=== PATIENT | male | born 1935 | race Caucasian/White ===

== ENCOUNTER 2016-03-16 19:08 | Emergency (ER) | payer OTHER, MEDICARE ==
[~2016-03-16] VITALS: Ht 170.2 cm; Wt 118.4 kg
[~2016-03-16 19:08] MED LIST: AMLO-110 PO; ASPI325T45 PO; ATOR-54 PO; CARV6.252 PO; FLUO20CA20 PO; FURO40TA3 PO; INSU1INJ SC; LISI-725 PO; NAPR-1169 PO; PLV75 PO
[2016-03-16 19:17] VITALS: TEMP 36.5; Ht 170.2 cm; Wt 118.4 kg
[2016-03-16] MEDS ORDERED: SODIUM CHLORIDE 0.9% 1000ML 500 ML IV STA (19:31)
[2016-03-16 20:02] LABS: BASO % 0.4 %; BASO ABS # 0.03 K/uL (0-0.2); COMPLETE YES; EOS % 1.7 %; IG% 0.3 %; LYMPH % 17.4 %; MEAN CELL VOLUME 87.2 fL (80-100); MEAN CORPUSCULAR HEMOGLOBIN 28.8 pg (25-34); MEAN CORPUSCULAR HGB CONC 33.1 g/dl (32-36); MEAN PLATELET VOLUME 9.1 fL (7.4-10.4); MONO % 9.6 %; NEUT % 70.6 %; PLATELET COUNT 232 K/uL (130-400); RED BLOOD COUNT 4.13 M/uL (4.7-6.1); WHITE BLOOD COUNT 7.48 K/uL (4.8-10.8)
[2016-03-16 20:14] LABS: INR 1.2 (0.9-1.1); PROTHROMBIN TIME (PATIENT) 12.4 SECONDS (9.0-12.0)
[2016-03-16] MEDS ORDERED: CLOP1TAB5 PO (20:15)
[2016-03-16] MEDS ORDERED: PRLSR20 PO (20:15)
--- NOTE | 2016-03-16 20:23 | DIAGNOSTIC IMAGING REPORT ---
HEAD CT NONCONTRAST CT DOSE: 537.48 mGy.cm HISTORY: Mental status change EVALUATE ALTERED MENTAL STATUS/WEAKNESS TECHNIQUE: Multiaxial CT images of the head were performed without the use of intravenous contrast. Comparison: 07/09/2013 Findings: The paranasal sinuses and mastoid air cells are clear. Findings of chronic small vessel change unaltered from the prior study. Ventricular system is midline. Mild scattered areas of age-related several malacia. Impression: Chronic and age-related change. No acute process. No change from the prior exam. Electronically signed by: Yoshi Clark M.D. 03/16/2016 8:22 PM Dictated Date/Time: 03/16/2016 8:21 PM
[2016-03-16 20:24] LABS: ALT/SGPT 22 U/L (12-78); BLOOD UREA NITROGEN 47 mg/dl (7-18); BUN/CREATININE RATIO 25.8 (10-20); CALCIUM 8.6 mg/dl (8.5-10.1); CARBON DIOXIDE 25 mmol/L (21-32); CHLORIDE 104 mmol/L (98-107); GLUCOSE 71 mg/dl (70-99); POTASSIUM 4.5 mmol/L (3.5-5.1); SODIUM 139 mmol/L (136-145)
[2016-03-16 20:34] LABS: ALB/GLOB RATIO 0.9 (0.9-2); ALKALINE PHOSPHATASE 109 U/L (45-117); AST/SGOT 23 U/L (15-37); THYROID STIMULATING HORMONE 0.733 uIu/ml (0.300-4.500)
--- NOTE | 2016-03-16 20:47 | DIAGNOSTIC IMAGING REPORT ---
CHEST 2 VIEWS ROUTINE CLINICAL HISTORY: EVALUATE ALTERED MENTAL STATUS/WEAKNESS dyspnea COMPARISON STUDY: 07/09/2013 FINDINGS: The bones soft tissues and hemidiaphragms are normal. The cardiomediastinal silhouette is normal. The lungs are clear. The pulmonary vasculature is normal. IMPRESSION: Negative chest. Electronically signed by: Yoshi Clark M.D. 03/16/2016 8:46 PM Dictated Date/Time: 03/16/2016 8:46 PM
[2016-03-16 21:39] LABS: URINE APPEARANCE CLEAR (CLEAR); URINE BILIRUBIN NEG (NEG); URINE COLOR YELLOW; URINE NITRITE NEG (NEG); URINE SPECIFIC GRAVITY 1.011 (1.000-1.030); UROBILINOGEN NEG (NEG)
[2016-03-16 21:40] LABS: MANUAL MICROSCOPIC REQUIRED? NO; REVIEW REQ? NO
[2016-03-16 22:41] VITALS: BP 97/71; PULSE 64; O2SAT 98
--- NOTE | 2016-03-17 02:13 | EMERGENCY ROOM VISIT NOTE ---
History Report prepared by Valeriy: Inocencia Kunz Under the Supervision of: Dr. Chase Prather M.D. First contact with patient: 19:26 Chief Complaint: HYPOGLYCEMIA Stated Complaint: ALTERED MENTAL STATUS, HYPOGLYCEMIA Nursing Triage Summary: Pt arrives by ALS from home. called EMS for hypoglycemia. Pt's BSG at home 47, given OJ reassessed at 57. Per EMS BSG 77. Pt denies any pain. Reports recent falls rib tenderness, bruising to right flank, bilateral legs. Hx of Dementia, HTN, Diabetes. Per . "I think he has a UTI. He's been going all day, but he can't get much out". History of Present Illness The patient is a 80 year old male who presents to the Emergency Room with complaints of an episode of hypoglycemia occurring just prior to arrival. Per the patient and his , the patient appeared to be confused. His checked his blood sugar and it was 47. The patient then drank some orange juice and his blood sugar level summer to 57. EMS was called and recorded a blood sugar level of 77. The patient did fall out of bed twice last week and notes occasional rib pain with movement. He has been experiencing less frequent urination. Patient denies cough, congestion, shortness of breath, or UTI history. The patient has dementia. 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 A total of 10 systems reviewed and were otherwise negative. Past Medical & Surgical Medical Problems: (1) Dementia (2) Diabetes (3) Hyperlipemia (4) Hypertension Family History Diabetes mellitus Hypertension Social History Smoking Status: Never Smoker Marital Status: Housing Status: lives with family Occupation Status: retired Current/Historical Medications Scheduled Amlodipine (Norvasc), 5 MG PO QAM Atorvastatin (Lipitor), 20 MG PO QAM Carvedilol (Coreg), 6.25 MG PO BID Clopidogrel Bisulfate (Plavix), 75 MG PO DAILY Fluoxetine Hcl (Pmdd) (Fluoxetine), 20 MG PO QAM Furosemide (Lasix), 40 MG PO QAM Insulin Isophan/Regular (Humulin 70/30), 70 UNITS SC QAM Insulin Isophan/Regular (Humulin 70/30), 35 UNITS SC QPM Lisinopril (Zestril), 20 MG PO QAM Naproxen (Naprosyn), 500 MG PO BID Omeprazole (Prilosec), 20 MG PO BID Allergies Coded Allergies: No Known Allergies (Verified , 03/14/15) Physical Exam Vital Signs Date Time Temp Pulse Resp B/P Pulse Ox O2 Delivery O2 Flow Rate FiO2 03/16/16 22:41 64 16 97/71 98 03/16/16 21:26 59 20 126/73 98 Room Air 03/16/16 21:15 58 03/16/16 20:52 58 18 139/68 98 Room Air 60 127/58 03/16/16 20:06 59 20 124/67 97 Room Air 03/16/16 19:17 36.5 56 18 120/66 98 Room Air Physical Exam GENERAL: Patient is in no acute distress. HEENT: No acute trauma, normocephalic atraumatic, mucous membranes moist, no nasal congestion, no scleral icterus. NECK: No stridor, no adenopathy, no meningismus, trachea is midline. LUNGS: Clear to auscultation bilaterally, no wheeze, no rhonchi, breath sounds equal. HEART: Without murmurs gallops or rubs, regular rate and rhythm. ABDOMEN: Soft, nontender, bowel sounds positive, no hernias, no peritonitis. EXTREMITIES: Old contusion to left proximal bean without signs of cellulitis, full range of motion to all lower extremities without pain or difficulty, mild edema bilaterally. NEUROLOGIC: Mild dementia noted, awake, able to answer simple questions, no acute motor or sensory deficits, no focal weakness. SKIN: No rash, no jaundice, no diaphoresis. Medical Decision & Procedures ER Provider Diagnostic Interpretation: X ray results and stated below per my interpretation and radiologist interpretation. Other radiology results and stated below per my review and radiologist interpretation: HEAD CT NONCONTRAST CT DOSE: 537.48 mGy.cm HISTORY: Mental status change EVALUATE ALTERED MENTAL STATUS/WEAKNESS TECHNIQUE: Multiaxial CT images of the head were performed without the use of intravenous contrast. Comparison: 07/09/2013 Findings: The paranasal sinuses and mastoid air cells are clear. Findings of chronic small vessel change unaltered from the prior study. Ventricular system is midline. Mild scattered areas of age-related several malacia. Impression: Chronic and age-related change. No acute process. No change from the prior exam. Electronically signed by: Yoshi Clark M.D. 03/16/2016 8:22 PM Dictated Date/Time: 03/16/2016 8:21 PM CHEST 2 VIEWS ROUTINE CLINICAL HISTORY: EVALUATE ALTERED MENTAL STATUS/WEAKNESS dyspnea COMPARISON STUDY: 07/09/2013 FINDINGS: The bones soft tissues and hemidiaphragms are normal. The cardiomediastinal silhouette is normal. The lungs are clear. The pulmonary vasculature is normal. IMPRESSION: Negative chest. Electronically signed by: Yoshi Clark M.D. 03/16/2016 8:46 PM Dictated Date/Time: 03/16/2016 8:46 PM Cath urine drain 600 cc. Laboratory Results 03/16/16 19:50 Red Blood Count 4.13, Mean Corpuscular Volume 87.2, Mean Corpuscular Hemoglobin 28.8, Mean Corpuscular Hemoglobin Concent 33.1, Mean Platelet Volume 9.1, Neutrophils (%) (Auto) 70.6, Lymphocytes (%) (Auto) 17.4, Monocytes (%) (Auto) 9.6, Eosinophils (%) (Auto) 1.7, Basophils (%) (Auto) 0.4, Neutrophils # (Auto) 5.28, Lymphocytes # (Auto) 1.30, Monocytes # (Auto) 0.72, Eosinophils # (Auto) 0.13, Basophils # (Auto) 0.03 03/16/16 19:50 Test 03/16/16 19:50 03/16/16 21:20 03/16/16 22:09 White Blood Count 7.48 K/uL (4.8-10.8) Red Blood Count 4.13 M/uL (4.7-6.1) Hemoglobin 11.9 g/dL (14.0-18.0) Hematocrit 36.0 % (42-52) Mean Corpuscular Volume 87.2 fL (80-100) Mean Corpuscular Hemoglobin 28.8 pg (25-34) Mean Corpuscular Hemoglobin Concent 33.1 g/dl (32-36) Platelet Count 232 K/uL (130-400) Mean Platelet Volume 9.1 fL (7.4-10.4) Neutrophils (%) (Auto) 70.6 % Lymphocytes (%) (Auto) 17.4 % Monocytes (%) (Auto) 9.6 % Eosinophils (%) (Auto) 1.7 % Basophils (%) (Auto) 0.4 % Neutrophils # (Auto) 5.28 K/uL (1.4-6.5) Lymphocytes # (Auto) 1.30 K/uL (1.2-3.4) Monocytes # (Auto) 0.72 K/uL (0.11-0.59) Eosinophils # (Auto) 0.13 K/uL (0-0.5) Basophils # (Auto) 0.03 K/uL (0-0.2) RDW Standard Deviation 46.3 fL (36.4-46.3) RDW Coefficient of Variation 14.5 % (11.5-14.5) Immature Granulocyte % (Auto) 0.3 % Immature Granulocyte # (Auto) 0.02 K/uL (0.00-0.02) Prothrombin Time 12.4 SECONDS (9.0-12.0) Prothromb Time International Ratio 1.2 (0.9-1.1) Activated Partial Thromboplast Time 26.0 SECONDS (21.0-31.0) Partial Thromboplastin Ratio 1.0 Anion Gap 10.0 mmol/L (3-11) Est Creatinine Clear Calc Drug Dose 41.6 ml/min Estimated GFR () 40.9 Estimated GFR (Non- 35.3 BUN/Creatinine Ratio 25.8 (10-20) Calcium Level 8.6 mg/dl (8.5-10.1) Total Bilirubin 0.5 mg/dl (0.2-1) Aspartate Amino Transf (AST/SGOT) 23 U/L (15-37) Alanine Aminotransferase (ALT/SGPT) 22 U/L (12-78) Alkaline Phosphatase 109 U/L (45-117) Total Creatine Kinase 400 U/L (39-308) Troponin I < 0.015 ng/ml (0-0.045) Total Protein 7.1 gm/dl (6.4-8.2) Albumin 3.4 gm/dl (3.4-5.0) Globulin 3.7 gm/dl (2.5-4.0) Albumin/Globulin Ratio 0.9 (0.9-2) Thyroid Stimulating Hormone (TSH) 0.733 uIu/ml (0.300-4.500) Urine Color YELLOW Urine Appearance CLEAR (CLEAR) Urine pH 5.0 (4.5-7.5) Urine Specific [place] 1.011 (1.000-1.030) Urine Protein NEG (NEG) Urine Glucose (UA) NEG (NEG) Urine Ketones NEG (NEG) Urine Occult Blood NEG (NEG) Urine Nitrite NEG (NEG) Urine Bilirubin NEG (NEG) Urine Urobilinogen NEG (NEG) Urine Leukocyte Esterase NEG (NEG) Bedside Glucose 103 mg/dl (70-99) Laboratory results reviewed by me. Medications Administered Medications (Trade) Dose Ordered Sig/Sue Route Start Time Stop Time Status Last Admin Dose Admin Sodium Chloride (Nss 1000ml) 500 ml @ 999 mls/hr Q31M STAT IV 03/16/16 19:31 03/16/16 20:01 DC 03/16/16 19:31 999 MLS/HR ECG Indication: other (hypoglycemia) Rate (beats per minute): 57 Rhythm: sinus bradycardia Findings: no acute ischemic change, no ectopy, other (old septal infarct ) ED Course 1927: The patient was evaluated in room C2. A complete history and physical exam was performed. 1930: Sodium Chloride 500 ml @ 999 mls/hr IV. 2152: I reevaluated the patient. 2158: Reevaluated the patient. Discussed results and discharge instructions: he verbalized understanding and agreement. The patient is ready for discharge. Medical Decision The patient is a 80 year old male who presents to the ED with complaints of hypoglycemia. Differential diagnoses considered include dehydration, hypoglycemia, infection, UTI, intracranial bleeding, anemia, electrolyte imbalance. There is no leukocytosis or concerning anemia. No significant electrolyte abnormality-creatinine is slightly elevated but this is baseline looking back at previous testing. There is no hepatitis. The patient appeared to be in a euthyroid state. Brain CT shows no acute bleed or mass effect. Chest x-ray does not show pneumonia or CHF. Urinalysis shows no infection. The patient was retaining urine though, about 600 mL of urine drained via catheter. On my exam, there were no focal neurologic deficits. The patient had a repeat blood sugar done here, this value is still adequate. EKG shows a sinus bradycardia, no ischemia. Cardiac enzyme testing times one is not suggestive of acute cardiac injury. The patient received IV saline, he is doing well and is asking for discharge. He did eat a meal here without difficulty. His family is at bedside. I spoke to them at length. The patient was felt stable for discharge with outpatient doctor follow-up. His hypoglycemic event has resolved. In regard to the urinary retention. The patient does not want a catheter. I do not think he needs a Wilson at this point as he is able to urinate, just small amounts at a time. Catheter placement would increase his risk for infection. If he cannot urinate at home, he will return to the ER. He will talk with his doctor about his urinary issues. Impression Primary Impression: Hypoglycemia Additional Impression: Urinary retention Scribe Attestation The scribe's documentation has been prepared under my direction and personally reviewed by me in its entirety. I confirm that the note above accurately reflects all work, treatment, procedures, and medical decision making performed by me. Departure Information Dispostion Home / Self-Care Referrals Benjamin Schulte M.D. (PCP) Forms HOME CARE DOCUMENTATION FORM, IMPORTANT VISIT INFORMATION, WORK / SCHOOL INSTRUCTIONS Patient Instructions My [facility] [employer] Additional Instructions keep close watch on your sugars talk with your doctor tomorrow about the urinary retention and the heart rate return for worsening symptoms or if you cannot urinate lab testing today was all ok no urine infection noted today Problem Qualifiers
[2016-04-15] MEDS ORDERED: NTRSLP4 SL (06:30)
[2016-04-15] MEDS ORDERED: ARC5 PO (06:30)
[2016-04-15] MEDS ORDERED: TYL325X PO (06:30)
[2016-04-15] MEDS ORDERED: NVLGIPEN SC (06:30)
[2016-05-17] MEDS ORDERED: DUTA0.5C PO (13:46)
[2016-05-17] MEDS ORDERED: NAPR-1169 PO (13:46)
[2016-05-17] MEDS ORDERED: DONE10TA12 PO (13:46)
[2016-05-17] MEDS ORDERED: GLC/500 PO (13:46)
== END 2016-03-16 22:42 | disposition home or self-care (01) ==
LOC: EDBD 19:08 → C.EDC 19:09
DX: E11.649 Type 2 diabetes mellitus with hypoglycemia without coma (principal); R33.9 Retention of urine, unspecified; F03.90 Unspecified dementia, unspecified severity, without behavioral disturbance, psychotic disturbance, mood disturbance, and anxiety; E78.5 Hyperlipidemia, unspecified; I10 Essential (primary) hypertension; Z83.3 Family history of diabetes mellitus; Z82.49 Family history of ischemic heart disease and other diseases of the circulatory system

== ENCOUNTER 2016-03-22 12:27 | Emergency (ER) | payer OTHER, MEDICARE ==
[~2016-03-22] VITALS: Ht 171.5 cm; Wt 118.8 kg
[~2016-03-22 12:27] MED LIST changes: -ASPI325T45 PO; +CLOP1TAB5 PO; -PLV75 PO; +PRLSR20 PO
[2016-03-22 12:34] VITALS: TEMP 36.6; Ht 171.5 cm; Wt 118.8 kg
--- NOTE | 2016-03-22 13:54 | EMERGENCY ROOM VISIT NOTE ---
History Report prepared by Valeriy: Radha Sellers Under the Supervision of: Dr. Leoncio Navas M.D. First contact with patient: 13:42 Chief Complaint: UNABLE TO VOID Stated Complaint: UNABLE TO VOID Nursing Triage Summary: pt to room a11a via ambulance from home. as per report, pt unable to to void as per . pt here 6 days ago for same issues. pt unable to tell us last time he voided. pt reports 'i dont have any pain i just have pressure here' pt points to lower abdominal/bladder. pt with hx of dementia. no other complaints at this time History of Present Illness The patient is a 80 year old male who presents to the Emergency Room via EMS with complaints of persistent difficulty urinating starting about a week ago. He reports a decreased urinary output and increased frequency of urination. He was evaluated in the Emergency Room 6 days ago. He was discharged home. Since discharge, the most amount of urine he has discharged is 150 cc and the least amount is 50 cc. He was placed on Flomax by his PCP without relief. He denies any history of enlarged prostate. The patient denies fevers, chills, or any other complaints. He denies any recent cold medication. The patient currently denies any pain. He has a history of dementia. Source of History: patient Onset: about a week ago Position: other (global) Symptom Intensity: No pain Quality: other (difficulty urinating) Timing: other (persistent) Modifying Factors (Relieving): other (Flomax without relief) Associated Symptoms: No chills, No fevers Review of Systems All systems have been listed, reviewed, and are negative other than those previously mentioned. Please see Additional Medical History Sheet. Past Medical & Surgical Medical Problems: (1) Dementia (2) Diabetes (3) Hyperlipemia (4) Hypertension Family History Diabetes mellitus Hypertension Social History Smoking Status: Heavy Tobacco Smoker Marital Status: Housing Status: lives with family Occupation Status: retired Current/Historical Medications Scheduled Amlodipine (Norvasc), 5 MG PO QAM Atorvastatin (Lipitor), 20 MG PO QAM Carvedilol (Coreg), 6.25 MG PO BID Clopidogrel Bisulfate (Plavix), 75 MG PO DAILY Fluoxetine Hcl (Pmdd) (Fluoxetine), 20 MG PO QAM Furosemide (Lasix), 40 MG PO QAM Insulin Isophan/Regular (Humulin 70/30), 70 UNITS SC QAM Insulin Isophan/Regular (Humulin 70/30), 35 UNITS SC QPM Lisinopril (Zestril), 20 MG PO QAM Naproxen (Naprosyn), 500 MG PO BID Allergies Coded Allergies: No Known Allergies (Verified , 03/14/15) Physical Exam Vital Signs Date Time Temp Pulse Resp B/P Pulse Ox O2 Delivery O2 Flow Rate FiO2 03/22/16 16:55 67 20 122/65 98 Room Air 03/22/16 15:04 67 18 127/73 99 Room Air 03/22/16 14:43 64 16 98 Room Air 03/22/16 12:34 36.6 69 18 89/65 98 Room Air Physical Exam GENERAL: Patient awake, alert. Disoriented. Patient follows commands. Patient does not appear toxic. Patient is adequately hydrated and well-nourished. SKIN: No erythema, pallor, cyanosis or rash HEENT: Normal head, pupils equal, reactive to light and accommodation. Ears normal. Oral cavity and posterior pharynx appear normal. Neck: Without adenopathy, no neck vein distention. LUNGS: Clear to auscultation. No wheezes, no rales, no rhonchi. HEART: No murmurs. No gallops. No rubs ABDOMEN: Obese, soft, nontender. No masses, no rebound, no hepatomegaly or splenomegaly. RECTAL: Large, swollen prostate. Bruise over right iliac crest. EXTREMITIES: Occasional bruises. No pedal or pretibial edema. No calf or thigh tenderness. NEUROLOGIC: Cranial nerves II-XII within normal limits. No gross motor sensory function deficits. Medical Decision & Procedures Laboratory Results 03/22/16 15:00 Red Blood Count 4.08, Mean Corpuscular Volume 88.2, Mean Corpuscular Hemoglobin 29.2, Mean Corpuscular Hemoglobin Concent 33.1, Mean Platelet Volume 8.6, Neutrophils (%) (Auto) 67.3, Lymphocytes (%) (Auto) 19.7, Monocytes (%) (Auto) 11.2, Eosinophils (%) (Auto) 1.4, Basophils (%) (Auto) 0.2, Neutrophils # (Auto ) 5.64, Lymphocytes # (Auto) 1.65, Monocytes # (Auto) 0.94, Eosinophils # (Auto ) 0.12, Basophils # (Auto) 0.02 03/22/16 15:00 Test 03/22/16 14:15 03/22/16 15:00 Urine Color YELLOW Urine Appearance CLEAR (CLEAR) Urine pH 5.0 (4.5-7.5) Urine Specific [place] 1.014 (1.000-1.030) Urine Protein NEG (NEG) Urine Glucose (UA) NEG (NEG) Urine Ketones NEG (NEG) Urine Occult Blood NEG (NEG) Urine Nitrite NEG (NEG) Urine Bilirubin NEG (NEG) Urine Urobilinogen NEG (NEG) Urine Leukocyte Esterase NEG (NEG) White Blood Count 8.39 K/uL (4.8-10.8) Red Blood Count 4.08 M/uL (4.7-6.1) Hemoglobin 11.9 g/dL (14.0-18.0) Hematocrit 36.0 % (42-52) Mean Corpuscular Volume 88.2 fL (80-100) Mean Corpuscular Hemoglobin 29.2 pg (25-34) Mean Corpuscular Hemoglobin Concent 33.1 g/dl (32-36) Platelet Count 230 K/uL (130-400) Mean Platelet Volume 8.6 fL (7.4-10.4) Neutrophils (%) (Auto) 67.3 % Lymphocytes (%) (Auto) 19.7 % Monocytes (%) (Auto) 11.2 % Eosinophils (%) (Auto) 1.4 % Basophils (%) (Auto) 0.2 % Neutrophils # (Auto) 5.64 K/uL (1.4-6.5) Lymphocytes # (Auto) 1.65 K/uL (1.2-3.4) Monocytes # (Auto) 0.94 K/uL (0.11-0.59) Eosinophils # (Auto) 0.12 K/uL (0-0.5) Basophils # (Auto) 0.02 K/uL (0-0.2) RDW Standard Deviation 47.1 fL (36.4-46.3) RDW Coefficient of Variation 14.6 % (11.5-14.5) Immature Granulocyte % (Auto) 0.2 % Immature Granulocyte # (Auto) 0.02 K/uL (0.00-0.02) Anion Gap 7.0 mmol/L (3-11) Est Creatinine Clear Calc Drug Dose 39.8 ml/min Estimated GFR () 38.3 Estimated GFR (Non- 33.0 BUN/Creatinine Ratio 24.0 (10-20) Calcium Level 8.7 mg/dl (8.5-10.1) Laboratory results as stated above per my review. ED Course 1342: Past medical records reviewed. The patient was evaluated in room A11A. A complete history and physical examination was performed. 1607: Upon reevaluation, the patient appeared to have improvement of his symptoms. I discussed today's findings with the patient and his family. They verbalized agreement of the treatment plan. The patient was discharged home. Medical Decision Differential diagnosis includes but is not limited to urinary retention, prostatic hypertrophy, prostatitis, orthostasis. The patient has an enlarged prostate he was here less than one week ago with urinary retention. He is on no new medications other than Flomax which is not helped much. He denies dysuria. Although he does have urgency and frequency. A Wilson was inserted and left in place. BUN and creatinine are slightly elevated. He does not appear to have a urinary tract infection. The patient will continue Flomax. He will need follow-up with urology. Impression Primary Impression: Urinary retention Additional Impression: Prostatic hypertrophy Scribe Attestation The scribe's documentation has been prepared under my direction and personally reviewed by me in its entirety. I confirm that the note above accurately reflects all work, treatment, procedures, and medical decision making performed by me. Departure Information Dispostion Home / Self-Care Referrals Benjamin Schulte M.D. (PCP) Forms HOME CARE DOCUMENTATION FORM, IMPORTANT VISIT INFORMATION, WORK / SCHOOL INSTRUCTIONS Patient Instructions ED Prostate Enlarged, My [facility] Additional Instructions Leave the catheter in place until removed by urology. Call tomorrow morning for an appointment. Continue all of your current medications as prescribed. Problem Qualifiers
[2016-03-22 14:36] LABS: URINE APPEARANCE CLEAR (CLEAR); URINE BILIRUBIN NEG (NEG); URINE COLOR YELLOW; URINE NITRITE NEG (NEG); URINE SPECIFIC GRAVITY 1.014 (1.000-1.030); UROBILINOGEN NEG (NEG)
[2016-03-22 14:56] LABS: MANUAL MICROSCOPIC REQUIRED? NO; REVIEW REQ? NO
[2016-03-22 15:14] LABS: BASO % 0.2 %; BASO ABS # 0.02 K/uL (0-0.2); COMPLETE YES; EOS % 1.4 %; IG% 0.2 %; LYMPH % 19.7 %; LYMPH ABS # 1.65 K/uL (1.2-3.4); MEAN CELL VOLUME 88.2 fL (80-100); MEAN CORPUSCULAR HEMOGLOBIN 29.2 pg (25-34); MEAN CORPUSCULAR HGB CONC 33.1 g/dl (32-36); MEAN PLATELET VOLUME 8.6 fL (7.4-10.4); MONO % 11.2 %; NEUT % 67.3 %; PLATELET COUNT 230 K/uL (130-400); RED BLOOD COUNT 4.08 M/uL (4.7-6.1); WHITE BLOOD COUNT 8.39 K/uL (4.8-10.8)
[2016-03-22 15:34] LABS: CALCIUM 8.7 mg/dl (8.5-10.1); CREATININE 1.9 mg/dl (0.60-1.40); POTASSIUM 4.9 mmol/L (3.5-5.1)
[2016-03-22 16:55] VITALS: BP 122/65; PULSE 67; O2SAT 98
[2016-04-15] MEDS ORDERED: NTRSLP4 SL (06:30)
[2016-04-15] MEDS ORDERED: TYL325X PO (06:30)
[2016-04-15] MEDS ORDERED: NVLGIPEN SC (06:30)
[2016-04-15] MEDS ORDERED: ARC5 PO (06:30)
[2016-05-17] MEDS ORDERED: NAPR-1169 PO (13:46)
[2016-05-17] MEDS ORDERED: DUTA0.5C PO (13:46)
[2016-05-17] MEDS ORDERED: DONE10TA12 PO (13:46)
[2016-05-17] MEDS ORDERED: GLC/500 PO (13:46)
== END 2016-03-22 17:03 | disposition home or self-care (01) ==
LOC: EDBD 12:27 → C.EDA 12:28
DX: R33.9 Retention of urine, unspecified (principal); N40.1 Benign prostatic hyperplasia with lower urinary tract symptoms; F03.90 Unspecified dementia, unspecified severity, without behavioral disturbance, psychotic disturbance, mood disturbance, and anxiety; E11.9 Type 2 diabetes mellitus without complications; I10 Essential (primary) hypertension; E78.5 Hyperlipidemia, unspecified; F17.200 Nicotine dependence, unspecified, uncomplicated; Z83.3 Family history of diabetes mellitus; Z82.49 Family history of ischemic heart disease and other diseases of the circulatory system

== ENCOUNTER 2016-04-11 03:00 | Inpatient (IN) | payer OTHER, MEDICARE ==
[~2016-04-11] VITALS: Ht 172.7 cm; Wt 116.8 kg
[~2016-04-11 03:00] MED LIST changes: -PRLSR20 PO
[2016-04-11] MEDS ORDERED: SODIUM CHLORIDE 0.9% 1000ML 1,000 ML IV STA ×2 (03:21→04:30)
[2016-04-11 03:56] LABS: BASO % 0.6 %; BASO ABS # 0.05 K/uL (0-0.2); COMPLETE YES; EOS % 2.6 %; HEMATOCRIT 36.3 % (42-52); IG% 0.1 %; LYMPH % 20.1 %; LYMPH ABS # 1.78 K/uL (1.2-3.4); MEAN CELL VOLUME 87.7 fL (80-100); MEAN CORPUSCULAR HEMOGLOBIN 28.5 pg (25-34); MEAN CORPUSCULAR HGB CONC 32.5 g/dl (32-36); MEAN PLATELET VOLUME 9.2 fL (7.4-10.4); MONO % 11.8 %; NEUT % 64.8 %; PLATELET COUNT 230 K/uL (130-400); RED BLOOD COUNT 4.14 M/uL (4.7-6.1); WHITE BLOOD COUNT 8.85 K/uL (4.8-10.8)
[2016-04-11 04:09] LABS: INR 1.2 (0.9-1.1); PARTIAL THROMBOPLASTIN RATIO 0.8; PROTHROMBIN TIME (PATIENT) 12.7 SECONDS (9.0-12.0)
[2016-04-11 04:15] LABS: ALT/SGPT 20 U/L (12-78); AST/SGOT 16 U/L (15-37); BLOOD UREA NITROGEN 51 mg/dl (7-18); BUN/CREATININE RATIO 21.4 (10-20); CARBON DIOXIDE 24 mmol/L (21-32); CHLORIDE 106 mmol/L (98-107); GLUCOSE 80 mg/dl (70-99); MAGNESIUM 2.6 mg/dl (1.8-2.4); POTASSIUM 4.5 mmol/L (3.5-5.1); SODIUM 141 mmol/L (136-145)
[2016-04-11 04:20] LABS: ALKALINE PHOSPHATASE 108 U/L (45-117)
[2016-04-11] MEDS: SODIUM CHLORIDE 0.9% 1000ML 1,000 ML IV SCH ×2 (04:41→17:06)
[2016-04-11] MEDS ORDERED: NITROGLYCERIN 0.4 MG SL PER TAB CHARGE SL PRN (04:45)
[2016-04-11 05:02] LABS: URINE APPEARANCE CLOUDY (CLEAR); URINE BILIRUBIN NEG (NEG); URINE COLOR YELLOW; URINE EPITHELIAL CELL AUTO >30 /lpf (0-5); URINE NITRITE NEG (NEG); URINE SPECIFIC GRAVITY 1.018 (1.000-1.030); UROBILINOGEN NEG (NEG); ZZURINE CULT IF INDIC CATH YES
[2016-04-11 05:05] LABS: MANUAL MICROSCOPIC REQUIRED? NO; REVIEW REQ? YES
[2016-04-11 05:18] LABS: URINE MUCUS PRESENT (NONE PRSENT); URINE PATH CASTS 1-5 GRANULAR CASTS /lpf (0)
[2016-04-11] MEDS ORDERED: TAMS0.4C38 PO (05:21)
[2016-04-11] MEDS ORDERED: OMEP20TA14 PO (05:30)
--- NOTE | 2016-04-11 05:38 | EMERGENCY ROOM VISIT NOTE ---
History Report prepared by Valeriy: Nuzhat Armas Under the Supervision of: Dr. Mj Camejo M.D. First contact with patient: 03:14 Chief Complaint: FALL Stated Complaint: HYPOGLYCEMIC History of Present Illness The patient is a 80 year old male who presents to the Emergency Room via EMS to be evaluated for a fall that occurred this morning. Per family, the patient fell out of bed onto his knees. Family state that the patient stopped breathing for a short period of time and that he started to turn blue. The patient's blood sugar was 69 after he fell. The patient has some low back pain. The patient denies headache, neck pain, chest pain. The patient's family deny that the patient has rashes. Source of History: patient Onset: this morning Position: other (global ) Quality: other (fall) Timing: other (episode) Associated Symptoms: + back pain, + rash, No chest pain, No headache, No neck pain Note: Family state that the patient stopped breathing for a short period of time and that he started to turn blue. Review of Systems See HPI for pertinent positives & negatives. A total of 10 systems reviewed and were otherwise negative. Past Medical & Surgical Medical Problems: (1) Dementia (2) Diabetes (3) Hyperlipemia (4) Hypertension (5) SYNCOPE,CAD,DM2,DEMENTIA,URINE RETENTION Family History Diabetes mellitus Hypertension Social History Smoking Status: Former Smoker Marital Status: Housing Status: lives with family Occupation Status: retired Current/Historical Medications Scheduled Amlodipine (Norvasc), 5 MG PO QAM Atorvastatin (Lipitor), 20 MG PO QAM Carvedilol (Coreg), 6.25 MG PO BID Clopidogrel Bisulfate (Plavix), 75 MG PO DAILY Fluoxetine Hcl (Pmdd) (Fluoxetine), 20 MG PO QAM Furosemide (Lasix), 40 MG PO QAM Insulin Isophan/Regular (Humulin 70/30), 55 UNITS SC QAM Insulin Isophan/Regular (Humulin 70/30), 25 UNITS SC QPM Lisinopril (Zestril), 20 MG PO QAM Naproxen (Naprosyn), 500 MG PO BID Omeprazole Magnesium (Prilosec Otc), 20 MG PO BID Tamsulosin Hcl (Flomax), 0.4 MG PO DAILY Allergies Coded Allergies: No Known Allergies (Verified , 03/14/15) Physical Exam Vital Signs Date Time Temp Pulse Resp B/P Pulse Ox O2 Delivery O2 Flow Rate FiO2 04/11/16 04:30 57 22 142/68 97 Room Air 04/11/16 04:16 62 24 98/47 99 04/11/16 04:00 60 22 96/63 97 Room Air 04/11/16 03:05 62 22 80/39 94 Room Air 04/11/16 03:05 60 04/11/16 03:04 36.3 62 22 79/38 94 Room Air Physical Exam GENERAL: Patient is well appearing, in no distress, with moderate dementia. HEENT: No acute trauma, normocephalic atraumatic, mucous membranes moist, no nasal congestion, no scleral icterus. NECK: No stridor, no adenopathy, no meningismus, trachea is midline. LUNGS: No dyspnea. Clear to auscultation and equal bilaterally. No wheeze, no rhonchi. HEART: Regular rate and rhythm. No murmurs, rubs, gallops appreciated. ABDOMEN: Soft, nontender, bowel sounds positive, no masses appreciated, no peritonitis. BACK: No midline tenderness, no CVA tenderness. Vague bilateral posterior iliac tenderness to palpation. EXTREMITIES: Normal motion all extremities, no cyanosis, no edema. NEUROLOGIC: Dementia, though awake and happy, no acute motor or sensory deficits , no focal weakness, cranial nerves grossly intact. SKIN: No rash, no jaundice, no diaphoresis. Medical Decision & Procedures ER Provider Diagnostic Interpretation: X ray results and stated below per my interpretation. Other radiology results and stated below per my review and radiologist interpretation: CT Head: Comparison 03/16. No acute intracranial finding or significant interval change. Radiologist: Rojelio Navarrete MD. Chest x-ray: 1 view: No infiltrate, no effusion, normal cardiac border. Laboratory Results 04/11/16 03:20 Red Blood Count 4.14, Mean Corpuscular Volume 87.7, Mean Corpuscular Hemoglobin 28.5, Mean Corpuscular Hemoglobin Concent 32.5, Mean Platelet Volume 9.2, Neutrophils (%) (Auto) 64.8, Lymphocytes (%) (Auto) 20.1, Monocytes (%) (Auto) 11.8, Eosinophils (%) (Auto) 2.6, Basophils (%) (Auto) 0.6, Neutrophils # (Auto ) 5.74, Lymphocytes # (Auto) 1.78, Monocytes # (Auto) 1.04, Eosinophils # (Auto ) 0.23, Basophils # (Auto) 0.05 04/11/16 03:20 Test 04/11/16 03:20 04/11/16 03:28 04/11/16 03:35 04/11/16 04:30 White Blood Count 8.85 K/uL (4.8-10.8) Red Blood Count 4.14 M/uL (4.7-6.1) Hemoglobin 11.8 g/dL (14.0-18.0) Hematocrit 36.3 % (42-52) Mean Corpuscular Volume 87.7 fL (80-100) Mean Corpuscular Hemoglobin 28.5 pg (25-34) Mean Corpuscular Hemoglobin Concent 32.5 g/dl (32-36) Platelet Count 230 K/uL (130-400) Mean Platelet Volume 9.2 fL (7.4-10.4) Neutrophils (%) (Auto) 64.8 % Lymphocytes (%) (Auto) 20.1 % Monocytes (%) (Auto) 11.8 % Eosinophils (%) (Auto) 2.6 % Basophils (%) (Auto) 0.6 % Neutrophils # (Auto) 5.74 K/uL (1.4-6.5) Lymphocytes # (Auto) 1.78 K/uL (1.2-3.4) Monocytes # (Auto) 1.04 K/uL (0.11-0.59) Eosinophils # (Auto) 0.23 K/uL (0-0.5) Basophils # (Auto) 0.05 K/uL (0-0.2) RDW Standard Deviation 47.9 fL (36.4-46.3) RDW Coefficient of Variation 14.9 % (11.5-14.5) Immature Granulocyte % (Auto) 0.1 % Immature Granulocyte # (Auto) 0.01 K/uL (0.00-0.02) Prothrombin Time 12.7 SECONDS (9.0-12.0) Prothromb Time International Ratio 1.2 (0.9-1.1) Activated Partial Thromboplast Time 21.7 SECONDS (21.0-31.0) Partial Thromboplastin Ratio 0.8 Anion Gap 11.0 mmol/L (3-11) Est Creatinine Clear Calc Drug Dose 30.7 ml/min Estimated GFR () 28.9 Estimated GFR (Non- 24.9 BUN/Creatinine Ratio 21.4 (10-20) Calcium Level 9.0 mg/dl (8.5-10.1) Magnesium Level 2.6 mg/dl (1.8-2.4) Total Bilirubin 0.6 mg/dl (0.2-1) Direct Bilirubin 0.2 mg/dl (0-0.2) Aspartate Amino Transf (AST/SGOT) 16 U/L (15-37) Alanine Aminotransferase (ALT/SGPT) 20 U/L (12-78) Alkaline Phosphatase 108 U/L (45-117) Troponin I < 0.015 ng/ml (0-0.045) Total Protein 7.1 gm/dl (6.4-8.2) Albumin 3.5 gm/dl (3.4-5.0) Bedside Glucose 91 mg/dl (70-99) Bedside Lactic Acid Venous 1.90 mmol/L (0.90-1.70) Urine Color YELLOW Urine Appearance CLOUDY (CLEAR) Urine pH 5.0 (4.5-7.5) Urine Specific [place] 1.018 (1.000-1.030) Urine Protein 1+ (NEG) Urine Glucose (UA) NEG (NEG) Urine Ketones TRACE (NEG) Urine Occult Blood 3+ (NEG) Urine Nitrite NEG (NEG) Urine Bilirubin NEG (NEG) Urine Urobilinogen NEG (NEG) Urine Leukocyte Esterase MODERATE (NEG) Urine WBC (Auto) 10-30 /hpf (0-5) Urine RBC (Auto) 10-30 /hpf (0-4) Urine Hyaline Casts (Auto) >30 /lpf (0-5) Urine Epithelial Cells (Auto) >30 /lpf (0-5) Urine Bacteria (Auto) NEG (NEG) Urine Renal Epithelial Cells /lpf (0-5) Urine Pathogenic Casts 1-5 GRANULAR CASTS /lpf (0) Urine Mucus PRESENT (NONE PRSENT) Urine Yeast (Auto) (NONE PRSENT) Laboratory results as reviewed by me. Medications Administered Medications (Trade) Dose Ordered Sig/Sue Route Start Time Stop Time Status Last Admin Dose Admin Sodium Chloride 1,000 ml @ 999 mls/hr Q1H1M STAT IV 3/5/17 03:21 04/11/16 04:21 DC 04/11/16 03:21 999 MLS/HR Sodium Chloride (Nss 1000ml) 1,000 ml @ 75 mls/hr [id number] STAT IV 04/11/16 04:30 04/11/16 17:49 04/11/16 04:30 75 MLS/HR ECG Indication: weakness Rate (beats per minute): 60 Rhythm: sinus rhythm Findings: no acute ischemic change, no ectopy ED Course 0315: The patient was evaluated in room A12. A complete history and physical exam was performed. 0321: Sodium Chloride 1000 ml @ 999 mls/hr IV 0430: Sodium Chloride 1000 ml @ 75 mls/hr IV 0435: I discussed the case with Dr. Viramontes ([facility]); he will further evaluate the patient. 0437: Upon reevaluation, the patient is resting. Discussed results and treatment plan with the patient's family. They verbalized understanding and agreement with the treatment plan. The patient will be evaluated for further management. Medical Decision Differential: Sepsis, Infectious (UTI/Pneumonia/Meningitis/etc), Metabolic/ Electrolyte Abnormality, Cardiac, Hepatic, Endocrine, Toxicologic, Neurologic, amongst other pathologies entertained. 80 yr old male brought in by EMS after family not he had fall to floor followed by what they felt was card/resp arrest in which he transiently stopped breathing and turned blue. No interventions and patient awake and returned to baseline. He is hypotensive on arrival, has elevated BUN/CR. I suspect this is secondary to hypovolemia as he has stopped eating very well last few days. UA dirty but from catheter and given no fever nor significant wbc elevation will hold on abx. I feel BP is secondary to volume issue as opposed to sepsis and such will try holding off abx as he was just on them for his foot. No evidence of cellulitis at this time. Stable throughout ED stay after improvement in BP. Will need to come in for further work-up and evaluation. Not convinced he had true cardiac arrest given spontaneous resolution and may have been more hypovolemic hypotension leading to transient AMS with syncope. Consults Time Called: 043 Consulting Physician: Dr. Viramontes ([facility]) Returned Call: 0435 I discussed the case with Dr. Viramontes ([facility]); he will further evaluate the patient. Impression Primary Impression: Syncope Additional Impressions: Altered mental status Acute on chronic renal insufficiency Hypotension Dehydration Scribe Attestation The scribe's documentation has been prepared under my direction and personally reviewed by me in its entirety. I confirm that the note above accurately reflects all work, treatment, procedures, and medical decision making performed by me. Departure Information Dispostion Being Evaluated By Hospitalist Referrals Benjamin Schulte M.D. (PCP) Patient Instructions My [facility] Problem Qualifiers Primary Impression: Syncope Syncope type: unspecified Qualified Codes: R55 - Syncope and collapse Additional Impressions: Altered mental status Altered mental status type: transient alteration of awareness Qualified Codes : R40.4 - Transient alteration of awareness Hypotension Hypotension type: unspecified hypotension type Qualified Codes: I95.9 - Hypotension, unspecified
[2016-04-11 06:05] VITALS: BP 114/76; PULSE 62; TEMP 36.3; O2SAT 100; Ht 172.7 cm; Wt 116.8 kg
[2016-04-11] MEDS ORDERED: GLUCOSE 10 TABS/TUBE PO PRN (06:15)
[2016-04-11] MEDS ORDERED: DEXTROSE 50% 50 ML SYR IV PRN (06:15)
[2016-04-11] MEDS ORDERED: GLUCAGON FOR INJ 1 MG VIAL SQ PRN (06:15)
[2016-04-11] MEDS ORDERED: GLUCOSE 40% GEL 15 GM TUBE PO PRN (06:15)
--- NOTE | 2016-04-11 06:22 | DIAGNOSTIC IMAGING REPORT ---
CHEST ONE VIEW PORTABLE CLINICAL HISTORY: AMS dyspnea COMPARISON STUDY: 03/16/2016 FINDINGS: The bones soft tissues and hemidiaphragms are normal. The cardiomediastinal silhouette is normal. The lungs are clear. The pulmonary vasculature is normal. IMPRESSION: Negative chest. Electronically signed by: Yoshi Clark M.D. 04/11/2016 6:20 AM Dictated Date/Time: 04/11/2016 6:20 AM
--- NOTE | 2016-04-11 06:25 | DIAGNOSTIC IMAGING REPORT ---
HEAD CT NONCONTRAST CT DOSE: 614.27 mGy.cm HISTORY: Mental status change AMS TECHNIQUE: Multiaxial CT images of the head were performed without the use of intravenous contrast. Comparison: 03/16/2016 Findings: The paranasal sinuses and mastoid air cells are clear. Chronic small vessel change. Scattered areas of age-related atrophy. No acute intracranial hemorrhage. No midline shift. Impression: Chronic and age-related change. No acute process. Electronically signed by: Yoshi Clark M.D. 04/11/2016 6:24 AM Dictated Date/Time: 04/11/2016 6:21 AM
[2016-04-11] MEDS: INSULIN ASPART 100 UNITS/ML 3 ML PEN SC SCH ×4 (07:00→20:45)
[2016-04-11 07:54] VITALS: BP 137/73; PULSE 66; TEMP 36.3; O2SAT 99
[2016-04-11] MEDS: ATORVASTATIN 20 MG TAB PO SCH (08:09)
[2016-04-11] MEDS: CLOPIDOGREL BISULFATE 75 MG TAB PO SCH (08:09)
[2016-04-11] MEDS: HEPARIN SOD 5000 UNIT/0.5 ML CARP SQ SCH ×2 (08:13→20:43)
[2016-04-11] MEDS ORDERED: CEFTRIAXONE SOD INJ 2,000 MG in DEXTROSE 5% 50ML 50 ML IV ONE (09:30)
[2016-04-11 11:55] VITALS: BP 126/48; PULSE 68; TEMP 36.4; O2SAT 99
[2016-04-11 13:13] LABS: CKMB/CK RATIO 1.4 (0-3.0)
--- NOTE | 2016-04-11 14:47 | HISTORY & PHYSICAL EXAMINATION ---
DATE OF ADMISSION: 04/11/2016 A 80-year-old male admitted through the Emergency Room after a syncopal episode. HISTORY OF PRESENT ILLNESS: The patient with multiple medical problems including coronary artery disease with history of stenting of his mid LAD back in 2009, type 2 diabetes mellitus, hyperlipidemia, obesity, osteoarthritis, recent urinary retention, he has a Wilson catheter in place, recent dysphagia with distal esophageal stenosis requiring dilatation. He also has been developing cognitive impairment. The patient lives at home with his . Early this morning, he slid out of bed. He sat down on the floor. His and his daughter came to help him and got him up to the chair. When they got him up to the chair, his stated that he passed out. He was turning blue. His eyes rolled to the back of his head. Within a short time he regained consciousness. Ambulance was called. The patient was brought to the Emergency Room. He was evaluated by Dr. Camejo. Multiple tests were ordered. There was nothing acute, indicating of any myocardial infarction. He had no evidence of any sepsis, but he was hypotensive. Dr. Camejo ordered normal saline solution and after administration, his blood pressure is improved. Mentally, he was back to his baseline. The patient's condition has been deteriorating. He has been getting weaker. Difficult for him to ambulate safely. He does use a walker. He is very forgetful. Recently, he presented with urinary retention. He was evaluated in the Emergency Room. A Wilson catheter was placed. He was referred for urology consultation. He was scheduled to have a cystoscopy sometime around 04/22/2016. His Wilson catheter remains in place. In view of his syncope, patient was admitted for further evaluation. PAST MEDICAL HISTORY: 1. Acute anteroseptal myocardial infarction in December of 2009. He had an emergency catheterization done by Dr. Chatman. He was found to have critical stenosis of his mid LAD. A drug-eluting stent was placed. His cardiac status has been stable. 2. Arterial hypertension, treated since 1987. 3. Type 2 diabetes mellitus. Also diagnosed in 1987. He was initially started on oral hypoglycemics, but he has been on insulin for many years now. 4. History of calcaneal spur of the left foot and plantar fasciitis. He was treated with different modalities and orthotics and physical therapy. 5. Status post bilateral cataract surgery back in the 1970s. 6. Left knee arthroscopic surgery in 1999 for a torn meniscus. 7. Colonoscopy showed colon polyps. Repeat colonoscopy was done and was unremarkable. 8. Cognitive impairment, mostly with his memory. 9. Distal esophageal stenosis, benign. He also had reflux esophagitis. He had an EGD done by Dr. Peña back on 03/14/2015 and the distal esophageal stenosis was dilated. 10. Urinary retention as noted above. He has a Wilson catheter in place. SOCIAL HISTORY: He is , had 2 children. He quit smoking back in 1987. He does chew tobacco. No excessive alcohol or drugs. No excessive coffee , tea or soft drinks. 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 FAMILY HISTORY: His father at age 74, had lung cancer. His mother had heart disease. He has no siblings. Children alive and well. ALLERGIES: None. CURRENT MEDICATIONS: All as noted on his home medication list. REVIEW OF SYSTEMS: He is resting comfortably. He denied any headache. No dizziness, no lightheadedness. He has no recollection of what happened to him before admission. Every time I ask him a question, his answer is, my knows. Denied any chest pain. No shortness of breath. No abdominal pain, no nausea, no vomiting. He has been having loose stool. His describes multiple bowel movements per day. His had to buy some disposable underwear because he was having too many accidents. His Wilson catheter is in place, no issues related to that. Denied any pain in his back or extremities. He has had multiple falls at home. His tells me that he fell down about 4 times. PHYSICAL EXAMINATION: GENERAL: Well-developed, in no acute distress. His recorded weight is 112.8 kg, height 171.5 cm, BMI 38.4. SKIN: Warm and dry. No rash. HEENT: He does wear glasses usually. He is post cataract surgery. No mucosal abnormalities in his nose, mouth or throat. NECK: Supple. Nontender. No adenopathy, no thyromegaly. No JVD. No bruit. CHEST: Normal. HEART: Regular heart sounds. No evident murmur, rub, or gallop. LUNGS: Clear. ABDOMEN: Soft, nontender, without organomegaly or masses. Obese. BACK: No spinal tenderness. EXTREMITIES: Minimal edema. No clubbing, no cyanosis. No joint or muscle tenderness. Absent posterior tibialis pulses. Good dorsalis pedis pulses. NEUROLOGIC: He is alert and awake but quite forgetful, does not recall what happened to him. There is no evidence of any lateralized deficit. LABORATORY TESTS: WBC count 8850, hemoglobin 11.8, hematocrit 36.3, platelet count 230,000. Prothrombin time 12.7, INR 1.2, PTT 21.7. Sodium 141, potassium 4.5, chloride 106, CO2 24, BUN 51, creatinine 2.4, glucose 80, calcium 9.0, magnesium 2.6, total bilirubin 0.6, direct bilirubin 0.2, AST 16, ALT 20, alkaline phosphatase 108, troponin I less than 0.015, total protein 7.1, albumin 3.5. His CT scan of the head done without contrast showed chronic and age related changes. No acute process was noted. Chest x-ray was also done and showed no evidence of acute onset of any congestive heart failure. No infiltrate. It was completely unremarkable. His electrocardiogram showed a sinus rhythm, rate of 60 beats per minute. No acute changes noted. ASSESSMENT: 1. Syncope. 2. Coronary artery disease. 3. Type 2 diabetes mellitus. 4. Acute renal failure superimposed on chronic renal failure. 5. Arterial hypertension. 6. Type 2 diabetes mellitus. 7. Cognitive impairment. 8. Osteoarthritis. 9. History of distal esophageal stenosis, requiring dilatation. 10. Urinary retention. He has a Wilson catheter in place. PLAN: The patient was admitted to PCU with telemetry. Resuscitation level 1. This was confirmed with his . All his laboratory tests were ordered. Cultures were ordered. The results of his urinalysis showing evidence of urinary tract infection. Urine culture was sent. He was started on IV Rocephin. We will check cardiac isoenzymes and serial electrocardiograms. Recently his appetite has been quite poor. He has not been eating or drinking sufficiently. He is dehydrated. His blood sugar has been dropping. Just 2 days ago, I did cut down significantly on his insulin dose. We will be monitoring his blood sugar. He was placed on a coverage. As noted, he has evidence of urinary tract infection. We will wait for the culture results. We will also change his Wilson catheter. Physical and occupational therapies have been ordered. We need to see how he does during his hospitalization, see what his condition is after his acute treatment. We may need to consider rehab stay prior to him being able to go home. This was discussed with his and she is agreeable. YOLA
[2016-04-11 15:30] VITALS: BP 141/83; PULSE 68; TEMP 36.4; O2SAT 98
[2016-04-11 19:25] VITALS: BP 106/46; PULSE 67; TEMP 36.5; O2SAT 96
[2016-04-12] VITALS (9 sets, daily range): BP systolic 94–151; BP diastolic 54–82; PULSE 58–83; TEMP 36.4–36.6; O2SAT 95–100
[2016-04-12] MEDS: SODIUM CHLORIDE 0.9% 1000ML 1,000 ML IV SCH ×3 (00:41→21:20)
[2016-04-12 06:37] LABS: BASO % 0.4 %; BASO ABS # 0.03 K/uL (0-0.2); COMPLETE YES; EOS % 3.4 %; HEMATOCRIT 34.6 % (42-52); IG% 0.1 %; LYMPH % 21.9 %; LYMPH ABS # 1.67 K/uL (1.2-3.4); MEAN CELL VOLUME 89.9 fL (80-100); MEAN CORPUSCULAR HEMOGLOBIN 29.1 pg (25-34); MEAN CORPUSCULAR HGB CONC 32.4 g/dl (32-36); MEAN PLATELET VOLUME 9.4 fL (7.4-10.4); MONO % 12.1 %; NEUT % 62.1 %; PLATELET COUNT 182 K/uL (130-400); RED BLOOD COUNT 3.85 M/uL (4.7-6.1); WHITE BLOOD COUNT 7.63 K/uL (4.8-10.8)
[2016-04-12 07:05] LABS: BUN/CREATININE RATIO 22.2 (10-20); CALCIUM 8.1 mg/dl (8.5-10.1); CREATININE 1.6 mg/dl (0.60-1.40); POTASSIUM 4.3 mmol/L (3.5-5.1)
[2016-04-12] MEDS: ATORVASTATIN 20 MG TAB PO SCH (07:46)
[2016-04-12] MEDS: CLOPIDOGREL BISULFATE 75 MG TAB PO SCH (07:46)
[2016-04-12] MEDS: CEFTRIAXONE SOD INJ 2,000 MG in DEXTROSE 5% 50ML 50 ML IV SCH (07:47)
[2016-04-12] MEDS: INSULIN ASPART 100 UNITS/ML 3 ML PEN SC SCH ×4 (07:54→21:22)
[2016-04-12] MEDS: HEPARIN SOD 5000 UNIT/0.5 ML CARP SQ SCH ×2 (07:56→21:22)
[2016-04-12] MEDS ORDERED: DIPHENOXYLATE/ATROPINE 2.5/0.025MG TAB PO PRN (08:00)
--- NOTE | 2016-04-12 09:00 | Clinical Documentation Query ---
[facility] : CLINICAL DOCUMENTATION QUERIES QUERY 1 OF 2 Patient is a 80 year old male admitted for evaluation of syncope in [facility] setting of acute renal failure and UTI. H&P notes that patient presented with Wilson catheter in place that was recently placed due to urinary retention. Was for urologic consultation on 04/22/16. Noted to be placed on Rocephin with UA "showing evidence of urinary tract infection". Urine culture is pending. As appropriate, clarify the likely or suspected etiology of the UTI in your patient. That is, is the UTI likely/possibly/suspected to be due to the indwelling Wilson catheter. Thank you. In your clinical opinion is this patient being managed for: (X ) Possible UTI secondary to indwelling urethral catheter ( ) Other explanation of clinical findings (Please Explain) ( ) Unable to determine (Please Define) ( ) Need to Discuss ( ) Not Agree The medical record reflects the following clinical findings, treatment, and risk factors. Clinical Indicators: Indwelling Wilson catheter, UTI Treatment: UA, C&S, IV Rocephin Risk Factors: Presence of indwelling Wilson catheter bypassing natural infection prevention mechanism. QUERY 2 OF 2 Documentation includes "chronic renal failure", not otherwise specified. Estimated GFR range from 08/21 to present of 25-41 ml/min. He is being Please clarify as clinically appropriate. In your clinical opinion is this patient being managed for: ( X ) Chronic kidney disease, stage 3 ( ) Other explanation of clinical findings (Please Explain) ( ) Unable to determine (Please Define) ( ) Need to Discuss ( ) Not Agree The medical record reflects the following clinical findings, treatment, and risk factors. Clinical Indicators: Treatment: IVF, serial chemistries Risk Factors: Age, CAD, hypertension, DM type 2 Please clarify and document your clinical opinion in the progress notes and discharge summary. Terms such as "probable", "suspected", "likely", "questionable", "possible", or "still to be ruled out" are acceptable. IF IN AGREEMENT, YOU MUST DOCUMENT ABOVE DIAGNOSTIC STATEMENT IN DAILY PROGRESS NOTES AND DISCHARGE SUMMARY. This document is not part of the patient's record. Thank You, Mat Henriquez, RN [phone]
[2016-04-12] MEDS: DONEPEZIL HCL 5 MG TAB PO SCH (09:58)
[2016-04-12] MEDS ORDERED: ONDANSETRON INJ 8 MG in DEXTROSE 5% 50ML 50 ML IV PRN (12:15)
--- NOTE | 2016-04-12 18:21 | PROGRESS NOTE ---
DATE: 04/12/2016 A 80-year-old male, admitted after a syncopal episode. His medical history includes: 1. Coronary artery disease. 2. Type 2 diabetes mellitus. 3. Chronic kidney disease with superimposed acute renal failure. 4. Arterial hypertension. 5. Cognitive impairment. 6. Urinary retention requiring an indwelling Wilson catheter. The patient was admitted. All his laboratory tests were ordered. He was placed on a monitor. He had no evidence of any arrhythmias. His cardiac isoenzymes did not show evidence of any myocardial injury. The patient was placed on a sliding scale coverage with insulin. He has been having episodes of hypoglycemia recently. I did decrease his insulin dose significantly. He is not on any maintenance regular dose. We are using only the coverage so far since his admission and his blood sugars have remained in excellent range and hardly required any coverage. The patient has significant problem with his memory. He is quite forgetful. He does not recall what is being told or what we are doing within a short time after discussion. His famous answer is my knows. He denied any headache, dizziness or lightheadedness. No chest pain. No shortness of breath. No abdominal pain, no nausea, no vomiting. No problem with his bowel movements. He has a Wilson catheter which was changed yesterday. He does have some swelling in his ankles. PHYSICAL EXAMINATION: GENERAL: Well-developed, in no distress. VITAL SIGNS: Blood pressure 151/70, pulse 65, respiration 20, temperature 36.5 and oxygen saturation 100% on room air. SKIN: Warm and dry. No rash. HEENT: No evidence of any mucosal abnormalities. NECK: Supple without lymph node enlargement. No JVD. Normal carotid pulses. No bruits. HEART: Regular heart sounds without any murmur, rub or gallop. LUNGS: Clear. ABDOMEN: Obese, soft and nontender. EXTREMITIES: Minimal edema. No clubbing or cyanosis. TODAY'S LABORATORY TESTS: WBC count 7630, hemoglobin 11.2, hematocrit 34.6 and platelet count 182,000. Sodium 141, potassium 4.3, chloride 108, CO2 21, BUN 36, creatinine 1.6, glucose 115 and calcium 8.1. ASSESSMENT: 1. Syncope. 2. Coronary artery disease. 3. Arterial hypertension. 4. Type 2 diabetes mellitus. 5. Cognitive impairment with significant loss of memory. 6. Obesity. 7. Urinary retention. Wilson catheter is in place. PLAN: 1. Continuing the same medications. 2. Continue on IV Rocephin. His final urine culture is pending. 3. As far as his Wilson catheter is being maintained in place he was scheduled to go back for urology followup and have a cystoscopy as an outpatient towards the middle of this month. 4. Continuing physical and occupational therapy. 5. He was transferred to a medical bed. 6. The main issue is with his deteriorating condition, weakness and multiple falls. Need to consider rehab stay for him.
[2016-04-13] VITALS: O2SAT 97
[2016-04-13 06:41] LABS: BASO % 0.5 %; BASO ABS # 0.03 K/uL (0-0.2); COMPLETE YES; EOS % 3.8 %; HEMATOCRIT 32.9 % (42-52); IG% 0.2 %; LYMPH % 22.8 %; LYMPH ABS # 1.46 K/uL (1.2-3.4); MEAN CELL VOLUME 89.6 fL (80-100); MEAN CORPUSCULAR HEMOGLOBIN 29.2 pg (25-34); MEAN CORPUSCULAR HGB CONC 32.5 g/dl (32-36); MEAN PLATELET VOLUME 9.1 fL (7.4-10.4); MONO % 13.1 %; NEUT % 59.6 %; PLATELET COUNT 169 K/uL (130-400); RED BLOOD COUNT 3.67 M/uL (4.7-6.1); WHITE BLOOD COUNT 6.39 K/uL (4.8-10.8)
[2016-04-13 07:10] LABS: BUN/CREATININE RATIO 20.8 (10-20); CALCIUM 7.9 mg/dl (8.5-10.1); CREATININE 1.2 mg/dl (0.60-1.40); POTASSIUM 4.1 mmol/L (3.5-5.1)
[2016-04-13 07:59] VITALS: BP 116/65; PULSE 70; TEMP 36.5; O2SAT 99
[2016-04-13 08:00] VITALS: O2SAT 99
[2016-04-13] MEDS: ATORVASTATIN 20 MG TAB PO SCH (08:19)
[2016-04-13] MEDS: CLOPIDOGREL BISULFATE 75 MG TAB PO SCH (08:20)
[2016-04-13] MEDS: DONEPEZIL HCL 5 MG TAB PO SCH (08:20)
[2016-04-13] MEDS: SODIUM CHLORIDE 0.9% 1000ML 1,000 ML IV SCH ×2 (08:21→16:50)
[2016-04-13] MEDS: INSULIN ASPART 100 UNITS/ML 3 ML PEN SC SCH ×4 (08:24→21:25)
[2016-04-13] MEDS: HEPARIN SOD 5000 UNIT/0.5 ML CARP SQ SCH ×2 (08:24→21:28)
[2016-04-13] MEDS: CEFTRIAXONE SOD INJ 2,000 MG in DEXTROSE 5% 50ML 50 ML IV SCH (09:48)
[2016-04-13 15:45] VITALS: BP 110/68; PULSE 75; TEMP 36.5; O2SAT 98
[2016-04-13 16:00] VITALS: O2SAT 98
--- NOTE | 2016-04-13 17:55 | PROGRESS NOTE ---
DATE: 04/13/2016 HISTORY OF PRESENT ILLNESS: A 80-year-old male admitted after a syncopal episode. His medical history is also significant for coronary artery disease, type 2 diabetes mellitus, chronic kidney disease, arterial hypertension, cognitive impairment, and urinary retention. The patient was admitted. All his laboratory tests were ordered. He has not had any recurrent dizziness or lightheadedness or any presyncope. He denied any chest pain, no shortness of breath. No abdominal pain, no nausea, no vomiting. Tolerating his diet. No pain in his back or extremities. PHYSICAL EXAMINATION: GENERAL: Well developed, in no distress. He is resting comfortably. VITAL SIGNS: Blood pressure 116/65, pulse 70, respiration 16, temperature 36.5, oxygen saturation 99% on room air. SKIN: Warm and dry. No rash. HEENT: No evidence of any mucosal abnormality. NECK: No JVD. HEART: Regular heart sounds. LUNGS: Clear. ABDOMEN: Obese, soft, nontender. BACK: No spinal tenderness. EXTREMITIES: No edema, clubbing, or cyanosis. TODAY'S LABORATORY TESTS: WBC count 6390, hemoglobin 10.7, hematocrit 32.9, platelet count 169,000. Sodium 141, potassium 4.1, chloride 110, CO2 22, BUN 25, creatinine 1.2, glucose 113, calcium 7.9. ASSESSMENT: 1. Syncope. 2. Coronary artery disease. 3. Cognitive impairment. 4. Type 2 diabetes mellitus. 5. Obesity. 6. Urinary retention. PLAN: 1. The patient is resting comfortably. All his cultures have been negative. He continues to be on Rocephin. 2. We will recheck his urinalysis. 3. Continue all his medications. 4. Continue physical and occupation therapy. 5. We are working on getting him to a rehab facility.
[2016-04-13] MEDS: ACETAMINOPHEN 325 MG TAB PO PRN (18:02)
[2016-04-14 00:17] VITALS: BP 138/77; PULSE 65; TEMP 36.4; O2SAT 97
[2016-04-14] MEDS: SODIUM CHLORIDE 0.9% 1000ML 1,000 ML IV SCH ×3 (03:12→21:25)
[2016-04-14] MEDS: HEPARIN SOD 5000 UNIT/0.5 ML CARP SQ SCH ×2 (06:00→21:18)
[2016-04-14 06:15] LABS: BASO % 0.3 %; BASO ABS # 0.02 K/uL (0-0.2); COMPLETE YES; EOS % 3.3 %; HEMATOCRIT 30.9 % (42-52); IG% 0.3 %; LYMPH ABS # 1.61 K/uL (1.2-3.4); MEAN CORPUSCULAR HEMOGLOBIN 28.8 pg (25-34); MEAN CORPUSCULAR HGB CONC 32.4 g/dl (32-36); MONO % 14.3 %; NEUT % 53.8 %; PLATELET COUNT 163 K/uL (130-400); RED BLOOD COUNT 3.47 M/uL (4.7-6.1); WHITE BLOOD COUNT 5.74 K/uL (4.8-10.8)
[2016-04-14 06:47] LABS: BUN/CREATININE RATIO 17.8 (10-20); CREATININE 0.99 mg/dl (0.60-1.40)
[2016-04-14 07:22] VITALS: BP 136/66; PULSE 63; TEMP 36.3; O2SAT 97
[2016-04-14 08:00] VITALS: O2SAT 97
[2016-04-14] MEDS: INSULIN ASPART 100 UNITS/ML 3 ML PEN SC SCH ×4 (08:11→21:00)
[2016-04-14] MEDS: CEFTRIAXONE SOD INJ 2,000 MG in DEXTROSE 5% 50ML 50 ML IV SCH (08:22)
[2016-04-14] MEDS: ATORVASTATIN 20 MG TAB PO SCH (09:00)
[2016-04-14] MEDS: DONEPEZIL HCL 5 MG TAB PO SCH (09:00)
[2016-04-14] MEDS: CLOPIDOGREL BISULFATE 75 MG TAB PO SCH (09:00)
[2016-04-14 15:19] VITALS: BP 153/86; PULSE 85; TEMP 36.4; O2SAT 97
[2016-04-14 16:00] VITALS: O2SAT 97
[2016-04-14] MEDS: ACETAMINOPHEN 325 MG TAB PO PRN (17:06)
[2016-04-14 18:10] LABS: URINE APPEARANCE CLEAR (CLEAR); URINE BILIRUBIN NEG (NEG); URINE COLOR YELLOW; URINE NITRITE NEG (NEG); URINE SPECIFIC GRAVITY 1.013 (1.000-1.030); UROBILINOGEN NEG (NEG)
[2016-04-14 18:17] LABS: MANUAL MICROSCOPIC REQUIRED? NO; REVIEW REQ? NO
--- NOTE | 2016-04-14 21:40 | PROGRESS NOTE ---
DATE: 04/14/2016 A 80-year-old male admitted with multiple problems including syncope, type 2 diabetes mellitus with episodes of hypoglycemia recently, acute renal failure superimposed on chronic renal failure, coronary artery disease, arterial hypertension, cognitive impairment, osteoarthritis. Overall, his condition has improved. He is still having problem with his cognitive impairment. He is very forgetful, but he is quite peaceful, calm, and resting without any problem. He denied any headache or dizziness. No chest pain, no shortness of breath. This morning he was nauseous. He had an episode of vomiting. He was given IV Zofran. No abdominal pain. No pain in his back or extremities. PHYSICAL EXAMINATION: GENERAL: Well developed, in no distress. VITAL SIGNS: Blood pressure 136/66, pulse 63, respirations 16, temperature 36.3, oxygen saturation 97% on room air. SKIN: Warm and dry. No rash. HEENT: No mucosal abnormality. NECK: No JVD, no adenopathy. HEART: Regular heart sounds. LUNGS: Clear. ABDOMEN: Obese, soft, nontender. BACK: No spinal tenderness. EXTREMITIES: No edema, clubbing or cyanosis. TODAY'S LABORATORY TESTS: WBC count 5740, hemoglobin 10, hematocrit 30.9, platelet count 163,000. Sodium 142, potassium 4.0, chloride 113, CO2 of 20, BUN 18, creatinine 0.99, glucose 119, calcium 8.0. ASSESSMENT: 1. Syncopal episode. 2. Coronary artery disease. 3. Cognitive impairment. 4. Type 2 diabetes mellitus. 5. Arterial hypertension. 6. Obesity. 7. Generalized weakness. PLAN: 1. Continue with his therapies. 2. Continue same medications. 3. We will repeat his urinalysis. 4. The patient has been accepted to go to [facility]. After I see him this morning, we will make a decision if he is ready to go. 5. I did speak with his this evening to give her an update.
[2016-04-14 23:25] VITALS: BP 110/65; PULSE 71; TEMP 36.6; O2SAT 98
[2016-04-15] MEDS: ACETAMINOPHEN 325 MG TAB PO PRN ×2 (02:51→10:53)
[2016-04-15 06:11] LABS: BASO % 0.7 %; BASO ABS # 0.03 K/uL (0-0.2); COMPLETE YES; EOS % 4.8 %; HEMATOCRIT 31.9 % (42-52); LYMPH % 33.7 %; MEAN CELL VOLUME 88.4 fL (80-100); MEAN CORPUSCULAR HEMOGLOBIN 28.8 pg (25-34); MEAN CORPUSCULAR HGB CONC 32.6 g/dl (32-36); MEAN PLATELET VOLUME 8.9 fL (7.4-10.4); MONO % 12.5 %; NEUT % 48.3 %; PLATELET COUNT 170 K/uL (130-400); RED BLOOD COUNT 3.61 M/uL (4.7-6.1); WHITE BLOOD COUNT 4.16 K/uL (4.8-10.8)
[2016-04-15] MEDS ORDERED: ARC5 PO (06:30)
[2016-04-15] MEDS ORDERED: NVLGIPEN SC (06:30)
[2016-04-15] MEDS ORDERED: TYL325X PO (06:30)
[2016-04-15] MEDS ORDERED: NTRSLP4 SL (06:30)
--- NOTE | 2016-04-15 06:38 | Discharge Instructions ---
Discharge Instructions Date of Service Apr 15, 2016. Admission Reason for Admission: Syncope, Coronary artery disease, Type 2 diabetes mellitus Dementia, Urine Retention Hypoglycemia obesity Hyperlipidemia Discharge Discharge Diagnosis / Problem: SYNCOPE.CORONARY ERTERY DISEASE,DIABETES MELLITUS 2,DEMENTIA,URINE RETENTIO Discharge Goals Goal(s): Decrease discomfort, Improve function, Increase independence, Improve disease control, Improve nutritional status Activity Recommendations Activity Level: Assistance Required Therapies: Physical Therapy, Occupational Therapy . Additional Information Patient informed of condition: Yes Advance Directives: Yes DNR: No Level of Care: Acute Rehab Communicable Disease: No Prognosis: Stable Gaspar Catheter: Yes Instructions / Follow-Up Instructions / Follow-Up PATIENT IS SCHEDULED FOR UROLOGY FOLLOW-UP FOR CYSTOSCOPY AND TRY TO REMOVE GASPAR.NEED TO KEEP HIS APPOINTMENT. PATIENT WAS ON NOVOLIN 70/30 AT HOME. HE WAS HAVING RECURRENT HYPOGLYCEMIA. NOW ONLY ON COVERAGE Current Hospital Diet Patient's current hospital diet: Diabetes Type 2 Diet, AHA Diet (Heart Healthy) Discharge Diet Recommended Diet: AHA Diet (Heart Healthy), Diabetes Type 2 Diet Pending Studies Studies pending at discharge: no Medical Emergencies . Who to Call and When: Medical Emergencies: If at any time you feel your situation is an emergency, please call 911 immediately. . Non-Emergent Contact Non-Emergency issues call your: Primary Care Provider . . "Provider Documentation" section prepared by Benjamin Viramontes. Core Measure Problem Core Measures: None
[2016-04-15 06:41] LABS: BUN/CREATININE RATIO 14.3 (10-20); CALCIUM 7.9 mg/dl (8.5-10.1); CREATININE 0.99 mg/dl (0.60-1.40); POTASSIUM 4.1 mmol/L (3.5-5.1)
[2016-04-15 07:24] VITALS: BP 124/72; PULSE 60; TEMP 36.6; O2SAT 94
[2016-04-15] MEDS: DONEPEZIL HCL 5 MG TAB PO SCH (07:43)
[2016-04-15] MEDS: ATORVASTATIN 20 MG TAB PO SCH (07:44)
[2016-04-15] MEDS: CLOPIDOGREL BISULFATE 75 MG TAB PO SCH (07:44)
[2016-04-15 08:00] VITALS: O2SAT 94
[2016-04-15] MEDS: INSULIN ASPART 100 UNITS/ML 3 ML PEN SC SCH ×2 (08:29→11:00)
[2016-04-15] MEDS: HEPARIN SOD 5000 UNIT/0.5 ML CARP SQ SCH (08:29)
[2016-04-15] MEDS ORDERED: CARVEDILOL 6.25 MG TAB PO SCH (09:00)
[2016-04-15] MEDS ORDERED: TAMSULOSIN HCL 0.4 MG CAP PO SCH (09:00)
[2016-04-15] MEDS ORDERED: FLUOXETINE HCL 20 MG CAP PO SCH (09:00)
[2016-04-15 13:30] VITALS: BP 124/72; PULSE 60; TEMP 36.6; O2SAT 94
--- NOTE | 2016-04-15 18:57 | PROGRESS NOTE ---
DATE: 04/15/2016 SUBJECTIVE: Mr. Burgess is a 80-year-old male admitted with syncopal episode. His medical problems include: 1. Syncope. 2. Coronary artery disease. 3. Type 2 diabetes mellitus. 4. Dementia. 5. Urinary retention. 6. Hypoglycemia prior to his admission. 7. Obesity. 8. Hyperlipidemia. The patient was admitted to PCU with telemetry. He was monitored. He did not present with any recurrent syncopal episode or any lightheadedness. His condition improved. He denied any headache. No dizziness, no lightheadedness. Denied any chest pain. No shortness of breath. No abdominal pain. His appetite remains poor, but improved. He had no nausea, no vomiting. No problem with his bowel movements. Initially he had some diarrhea. He tested negative for Clostridium difficile toxin. He does have urinary retention and has a Wilson catheter in place. PHYSICAL EXAMINATION: GENERAL: Well developed in no distress. VITAL SIGNS: Blood pressure 124/72, pulse 60, respirations 16, temperature 36.6, oxygen saturation 94% on room air. SKIN: Warm and dry. No rash. HEENT: No mucosal abnormality. NECK: No JVD. No adenopathy. HEART: Regular heart sounds. LUNGS: Clear. No wheezing, no rhonchi. ABDOMEN: Obese, soft, nontender, without organomegaly or masses. BACK: No spinal tenderness. EXTREMITIES: No edema, clubbing, or cyanosis. NEUROLOGIC: He is still forgetful, but there is no lateralized deficit. GENITALIA: He does have a Wilson catheter in place. TODAY'S LABORATORY TESTS: WBC count 4160, hemoglobin 10.4, hematocrit 31.9, and platelet count 170,000. Sodium 143, potassium 4.1, chloride 114, CO2 21, BUN 14, creatinine 0.99, glucose 117; and calcium 7.9. ASSESSMENT: 1. Syncope. 2. Coronary artery disease. 3. Type 2 diabetes mellitus. 4. Cognitive impairments. 5. Urinary retention. He has a Wilson catheter that is in place. PLAN: 1. Overall, his condition has improved. 2. He is continuing to receive physical therapy. 3. Continuing the same medications. 4. Since admission, I did discontinue his insulin, he was on the 70/30 and he really has not required much insulin for his coverage. So I will keep him off his regular dose of insulin and will continue monitoring his blood sugars and decide on restarting any of insulin on a regular basis. I expect that will happen at a much lesser dose. 5. He is scheduled to go back for a urology followup to attempt to remove the Wilson catheter and also do a cystoscopy. 6. The patient was accepted at [facility]. Arrangements were made for today.
--- NOTE | 2016-04-25 21:10 | DISCHARGE SUMMARY ---
DISCHARGE DIAGNOSES: 1. Syncope. 2. Coronary artery disease. 3. Type 2 diabetes mellitus. 4. Dementia. 5. Urinary retention. 6. Hypoglycemia. 7. Hyperlipidemia. 8. Obesity. DISCHARGE MEDICATIONS: Included: 1. Tylenol 650 mg every 4 hours as needed for pain or fever. 2. Aricept 5 mg daily. 3. Novolin regular insulin according to sliding scale. 4. Nitrostat 0.4 mg sublingually as needed. 5. Lipitor 20 mg daily. 6. Carvedilol 6.25 mg twice a day. 7. Plavix 75 mg daily. 8. Fluoxetine 20 mg daily. 9. Omeprazole 20 mg twice a day. 10. Flomax 0.4 mg daily. HISTORY OF PRESENT ILLNESS: A 80-year-old male, admitted through the Emergency Room after a syncopal episode. The patient with multiple medical problems as noted was at home with his . Early in the morning, he slid out of bed. He sat down on the floor. His and his daughter came to help him and got him up to sit in a chair. When they got him up in the chair, his stated that he passed out. He was turning blue. His eyes rolled to the back of his head. Within a short time, he regained consciousness. Ambulance was called. He was evaluated by Dr. Camejo. Multiple tests were done. His condition has been deteriorating. He has been getting weaker. Difficult for him to ambulate safely. He does use a walker at home, but he was also very weak with that. Even the walker was not providing enough safety for him. He was also getting very forgetful. Recently, he presented with urinary retention. He has a Wilson catheter in place. He was scheduled to have a urology followup and cystoscopy. In view of his syncope and multiple problems, the patient was admitted for evaluation. PAST MEDICAL HISTORY, SOCIAL HISTORY AND FAMILY HISTORY: All as noted. ALLERGIES: None. MEDICATIONS ON ADMISSION: All as noted on his home medication list. PHYSICAL EXAMINATION AND ADMISSION LABORATORY TESTS: All as noted. HOSPITAL COURSE: The patient was admitted to PCU with telemetry. Resuscitation level 1. All his laboratory tests were ordered. Cardiac isoenzymes were checked. Serial electrocardiograms were ordered. He was dehydrated. He was started on IV fluids. He has not been eating well at home. He was having episodes of hypoglycemia and I did cut down his dose of insulin significantly prior to his admission. The patient also had evidence of urinary tract infection, culture was done. His cardiac isoenzymes were negative for any evidence of myocardial infarction. He did not manifest any arrhythmias. Physical and occupational therapies were ordered. The patient was continued on just insulin coverage. I discontinued his daily dose of insulin. His blood sugars remained in a very safe range. He was continued on IV Rocephin. He was transferred to a medical bed since he did not manifest any arrhythmias or any issues that could contribute to his syncope. As noted, he was continued on therapies. Case management consultation was requested. I did not feel that the patient will be able to return home. He needed rehabilitation and we were working on getting him to [facility]. His condition remains weakened. He was resting in bed most of the time, but we did get him out of bed. He was having his therapies. The patient was accepted to go to [facility]. Arrangements were made. It all depend on what condition he is in after his rehab, whether he is going to be able to return home.
--- NOTE | 2016-05-07 11:46 | EDITING REQUIRED CODING QUERY ---
CHRONIC KIDNEY DISEASE To promote full compliance with coding requirements relating to patient care, physician participation is requested in all cases of room service food server uncertainty. Please assist us with the question(s) below: Coding Question(s): The record reflects the following clinical findings: Please specify the known or suspected type by placing an "X" within the parenthesis (x). If other, please document type. Please document Staging if known: ( ) Stage I >90 Kidney damage with normal or elevated GFR. (x ) Stage II 60-89 Kidney damage with mildly decreased kidney function ( ) Stage III 30-59 Moderately decreased kidney function ( ) Stage IV 15-29 Severely decreased kidney function ( ) Stage V <15 Renal failure (or dialysis) ( ) End Stage ( ) Unknown Thank you Nicole Sanchez
--- NOTE | 2016-05-07 11:48 | EDITING REQUIRED CODING QUERY ---
CODING QUERY To promote full compliance with coding requirements relating to patient care, provider participation is requested in all cases of galley cook uncertainty. Please assist us with the question(s) below: Coding Question(s): There is acute renal failure mentioned on the H&P but no other documentation in the record or Discharge Summary. Please clarify below, in you clinical opinion. (x ) Acute Renal Failure was present and treated. ( ) There was no Acute Renal Failure Physician's Response(s): Thank you Nicole Sanchez Principal Diagnosis: "_that condition established after study, to be chiefly responsible for occasioning the admission of the patient to the hospital for care." Co-Existing Principal Diagnosis: "_when two or more diagnoses equally meet the criteria for principal diagnosis as determined by the circumstances of admission, diagnostic work up, and/or therapy provided, and the Alphabetic Index, Tabular List, or another coding guideline does not provide sequencing direction, any one of the diagnoses may be sequenced first." "When the physician has documented what appears to be a current diagnosis in the body of the record, but has not included the diagnosis in the final diagnostic statement, the physician should be asked whether the diagnosis should be added." (Source [facility] 2 QTR90. p3-4)
--- NOTE | 2016-05-07 11:49 | EDITING REQUIRED CODING QUERY ---
CODING QUERY To promote full compliance with coding requirements relating to patient care, provider participation is requested in all cases of vapor coater uncertainty. Please assist us with the question(s) below: Coding Question(s): Please clarify below, in your clinical opinion, regarding the UTI in patient with a Wilson catheter. ( ) There was a UTI present and treated and this was not a complication of the Wilson catheter ( ) There was UTI present and treated and this was a complication of the Wilson catheter ( x ) There was not UTI present and treated Physician's Response(s): Thank you Nicole Sanchez Principal Diagnosis: "_that condition established after study, to be chiefly responsible for occasioning the admission of the patient to the hospital for care." Co-Existing Principal Diagnosis: "_when two or more diagnoses equally meet the criteria for principal diagnosis as determined by the circumstances of admission, diagnostic work up, and/or therapy provided, and the Alphabetic Index, Tabular List, or another coding guideline does not provide sequencing direction, any one of the diagnoses may be sequenced first." "When the physician has documented what appears to be a current diagnosis in the body of the record, but has not included the diagnosis in the final diagnostic statement, the physician should be asked whether the diagnosis should be added." (Source [facility]oding [facility] 2 QTR90. p3-4)
[2016-05-17] MEDS ORDERED: GLC/500 PO (13:46)
[2016-05-17] MEDS ORDERED: DONE10TA12 PO (13:46)
[2016-05-17] MEDS ORDERED: DUTA0.5C PO (13:46)
[2016-05-17] MEDS ORDERED: NAPR-1169 PO (13:46)
== END 2016-04-15 14:00 | DRG 312 ==
LOC: ENRESERVTM → ENRESERVDT → EDBD 03:03 → C.EDA 03:04 → C.2T 04:58 → C.MED 04-12 15:31
PROVIDERS: ADMIT Internal Medicine; ATTEND Internal Medicine
DX: R55 Syncope and collapse (principal); N17.9 Acute kidney failure, unspecified; E86.0 Dehydration; I95.9 Hypotension, unspecified; E11.649 Type 2 diabetes mellitus with hypoglycemia without coma; N18.2 Chronic kidney disease, stage 2 (mild); R33.9 Retention of urine, unspecified; F03.90 Unspecified dementia, unspecified severity, without behavioral disturbance, psychotic disturbance, mood disturbance, and anxiety; R53.1 Weakness; R19.7 Diarrhea, unspecified; I13.10 Hypertensive heart and chronic kidney disease without heart failure, with stage 1 through stage 4 chronic kidney disease, or unspecified chronic kidney disease; I25.10 Atherosclerotic heart disease of native coronary artery without angina pectoris; E78.5 Hyperlipidemia, unspecified; I25.2 Old myocardial infarction; F17.220 Nicotine dependence, chewing tobacco, uncomplicated; E66.9 Obesity, unspecified; Z91.81 History of falling; Z79.899 Other long term (current) drug therapy; Z79.4 Long term (current) use of insulin; Z79.02 Long term (current) use of antithrombotics/antiplatelets; Z95.5 Presence of coronary angioplasty implant and graft; Z68.38 Body mass index [BMI] 38.0-38.9, adult; Z83.3 Family history of diabetes mellitus; Z82.49 Family history of ischemic heart disease and other diseases of the circulatory system; Z80.1 Family history of malignant neoplasm of trachea, bronchus and lung

== ENCOUNTER → 2016-05-21 | Day surgery (SDC) | payer OTHER, MEDICARE ==
[2016-05-17 13:50] VITALS: Ht 171.5 cm; Wt 105.5 kg
[~2016-05-21] VITALS: Ht 171.5 cm; Wt 105.5 kg
[~2016-05-21] MED LIST changes: -AMLO-110 PO; +DONE10TA12 PO; +DUTA0.5C PO; -FURO40TA3 PO; +GLC/500 PO; -INSU1INJ SC; +LIDOCAINE HCL 2% 2 ML VIAL (20MG/ML) ONE; -LISI-725 PO; +MIDAZOLAM HCL 1 MG/ML 2ML VIAL ONE; +OMEP20TA14 PO; +ONDANSETRON INJ 2 MG/ML 2 ML VIAL ONE; +PROPOFOL IV EMULSION 10 MG/ML 20 ML VIAL IV ONE; +TAMS0.4C38 PO
--- NOTE | 2016-05-21 12:48 | Endo History and Physical ---
History & Physical Date of Service: May 21, 2016. Chief Complaint: Dysphagia Referring Physician: Dr. Chandrakant Leslie History of Present Illness For EGD Past Medical History Diabetes, Neurological Disorder, Angioplasty/Stent, High Cholesterol, Hypertension, [place] Past Surgical History Hx Cardiac Surgery: Yes (HEART CATH, STENT X1) Hx Internal Defibrillator: No Hx Pacemaker: No Hx Abdominal Surgery: No Hx of Implantable Prosthesis: No Hx Post-Op Nausea and Vomiting: No Hx Cancer Surgery: No Hx Thoracic Surgery: No Hx Orthopedic: Yes (LT KNEE SCOPE) Hx Urinary Tract Surgery: Yes (CYSTOSCOPY) Family History None Social History Smoking Status: Never Smoker Hx Substance Use: No Hx Alcohol Use: No Allergies Coded Allergies: No Known Allergies (Verified , 05/17/16) Current Medications Reported Home Medications Medications Dose Route/Sig Max Daily Dose Days Date Category Naprosyn (Naproxen) 500 Mg Tab 500 Mg PO BID 05/17/16 Reported Aricept (Donepezil Hydrochloride) 10 Mg Tab 10 Mg PO HS 05/17/16 Reported Glucophage (Metformin Hcl) 500 Mg Tab 500 Mg PO BID 05/17/16 Reported Avodart (Dutasteride) 0.5 Mg Cap 0.5 Mg PO QAM 05/17/16 Reported Prilosec Otc (Omeprazole Magnesium) 20 Mg Tab 20 Mg PO BID 04/11/16 Reported Flomax (Tamsulosin Hcl) 0.4 Mg Cap 0.4 Mg PO QAM 04/11/16 Reported Plavix (Clopidogrel Bisulfate) 75 Mg Tab 75 Mg PO QAM 03/16/16 Reported Coreg (Carvedilol) 6.25 Mg Tab 6.25 Mg PO BID 07/09/13 Reported Lipitor (Atorvastatin) 20 Mg Tab 20 Mg PO QAM 07/09/13 Reported Fluoxetine (Fluoxetine Hcl (Pmdd)) 20 Mg Cap 20 Mg PO QAM 07/09/13 Reported Vital Signs Weight (Kilograms): 105.45 Height (Feet): 5 Height (Inches): 7.5 Physical Exam General Appearance: + obese Respiratory/Chest: Auscultation: deminished air movement Cardiovascular: Heart Auscultation: RRR Abdomen: Inspection & Palpation: soft Assessment and Plan Dysphagia for EGD
--- NOTE | 2016-05-21 13:13 | Discharge Instructions ---
Endoscopy Patient Instructions Date / Procedure(s) Performed May 21, 2016. EGD Allergy Information Coded Allergies: No Known Allergies (Verified , 05/17/16) Discharge Date / Findings May 21, 2016. Schatzki ring dilated Medication Instructions Stopped Medication(s): last dose Plavix on Tuesday,last Naprosyn 5 days ago Restart Stopped Medication(s): Hold Plavix for 3 days Reported Home Medications Medications Dose Route/Sig Max Daily Dose Days Date Category Naprosyn (Naproxen) 500 Mg Tab 500 Mg PO BID 05/17/16 Reported Aricept (Donepezil Hydrochloride) 10 Mg Tab 10 Mg PO HS 05/17/16 Reported Glucophage (Metformin Hcl) 500 Mg Tab 500 Mg PO BID 05/17/16 Reported Avodart (Dutasteride) 0.5 Mg Cap 0.5 Mg PO QAM 05/17/16 Reported Prilosec Otc (Omeprazole Magnesium) 20 Mg Tab 20 Mg PO BID 04/11/16 Reported Flomax (Tamsulosin Hcl) 0.4 Mg Cap 0.4 Mg PO QAM 04/11/16 Reported Plavix (Clopidogrel Bisulfate) 75 Mg Tab 75 Mg PO QAM 03/16/16 Reported Coreg (Carvedilol) 6.25 Mg Tab 6.25 Mg PO BID 07/09/13 Reported Lipitor (Atorvastatin) 20 Mg Tab 20 Mg PO QAM 07/09/13 Reported Fluoxetine (Fluoxetine Hcl (Pmdd)) 20 Mg Cap 20 Mg PO QAM 07/09/13 Reported Provider Instructions Activity Restrictions - No exercising or heavy lifting for 24 hours. - Do not drink alcohol the day of the procedure. - Do not drive a car or operate machinery until the day after the procedure. - Do not make any important decisions or sign important papers in 24 hours after the procedure. Following Day: - Return to full activity which may include returning to work/school. Diet Start your diet with liquids and light foods (jello, soup, juice, toast). Then eat your usual diet if not nauseated. Treatment For Common After Affects For mild abdominal pain, bloating, or excessive gas: - Rest - Eat lightly - Lie on right side Follow-Up Information Follow-up with Dr. Rome as scheduled Anesthesia Information What You Should Know You have had a procedure that required some medicine to reduce anxiety and discomfort. This treatment is called moderate sedation. After receiving the treatment, you may be sleepy, but you will be able to breathe on your own. The effects of the treatment may last for several hours. Follow these instructions along with Activity/Diet recommendations noted above: * Do NOT do anything where dizziness or clumsiness would be dangerous. * Rest quietly at home today, then you can be up and about tomorrow. * Have a responsible person stay with you the rest of today. * You may have had an I.V. today. If so, you may take the dressing off later today. Recommendations Call your doctor if: * Trouble breathing * Continuous vomiting for more than 24 hours * Temperature above 101 degrees * Severe abdominal pain or bloating * Pain not relieved by pain medicine ordered * There is increased drainage or redness from any incision * A large amount of rectal bleeding greater than 2-3 tablespoons. (If you had a polyp/s removed or have hemorrhoids, a small amount of blood - from the rectum is to be expected.) * You have any unanswered questions or concerns. IN THE EVENT OF A SERIOUS EMERGENCY, GO TO THE NEAREST EMERGENCY ROOM Your discharge instructions were prepared by provider Alexis Peña. Patient Instructions Signature Page Chilango Burgess Patient (or Guardian) Signature/Date: I have read and understand the instructions given to me by my caregivers. Caregiver/RN/Doctor Signature/Date: The above-named patient and/or guardian has received patient instructions on this date. + Original Patient Signature Page (only) stays with chart. Please make copy for patient.
--- NOTE | 2016-05-21 13:22 | GI REPORT ---
Procedure Date: 05/21/2016 12:53 PM Procedure: Upper GI endoscopy Indications: Dysphagia Medicines: Midazolam 2 mg IV, Zofran 4 mg IV, Propofol total dose 30 mg IV, Lidocaine 80 mg IV Complications: No immediate complications. Estimated Blood Loss: Estimated blood loss was minimal. Procedure: Pre-Anesthesia Assessment: - Prior to the procedure, a History and Physical was performed, and patient medications, allergies and sensitivities were reviewed. The patient's tolerance of previous anesthesia was reviewed. - The risks and benefits of the procedure and the sedation options and risks were discussed with the patient. All questions were answered and informed consent was obtained. After obtaining informed consent, the endoscope was passed under direct vision. Throughout the procedure, the patient's blood pressure, pulse, and oxygen saturations were monitored continuously. The scope was introduced through the mouth, and advanced to the second part of duodenum. The upper GI endoscopy was accomplished without difficulty. The patient tolerated the procedure well. Findings: A low-grade of narrowing Schatzki ring (acquired) was found at the gastroesophageal junction. A guidewire was placed and the scope was withdrawn. Dilation was performed with a Savary dilator with no resistance at 60 Fr. Estimated blood loss was minimal. The entire examined stomach was normal. The examined duodenum was normal. Impression: - Low-grade of narrowing Schatzki ring. Dilated. - Normal stomach. - Normal examined duodenum. - No specimens collected. Recommendation: - Discharge patient to home (ambulatory). - - Resume Plavix (clopidogrel) at prior dose in 3 days [Time to Restart]. [Management]. - Return to primary care physician PRN. Alexis Peña M.D. Alexis Peña MD 05/21/2016 1:20:06 PM This report has been signed electronically. Note Initiated On: 05/21/2016 12:53 PM I attest to the content of the Intraoperative Record and orders documented therein, exceptions below
--- NOTE | 2016-05-21 13:41 | Anesthesiology Progress Note ---
Anesthesia Post Op Note Date & Time May 21, 2016 at 13:40 Vital Signs Pain Intensity: 0 Vital Signs Past 12 Hours Date Time Temp Pulse Resp B/P Pulse Ox O2 Delivery O2 Flow Rate FiO2 05/21/16 13:30 61 20 127/68 96 Room Air 05/21/16 13:17 64 20 104/43 98 Room Air 05/21/16 12:35 36.5 59 20 148/77 98 Room Air Notes Mental Status: alert / awake / arousable, participated in evaluation Pt Amnestic to Procedure: Yes Nausea / Vomiting: adequately controlled Pain: adequately controlled Airway Patency, RR, SpO2: stable & adequate BP & HR: stable & adequate Hydration State: stable & adequate Anesthetic Complications: no major complications apparent
[2016-05-21 14:17] VITALS: BP 124/80; PULSE 62; O2SAT 99
== END | disposition home or self-care (01) ==
LOC: C.GI 12:14
PROVIDERS: ATTEND Internal Medicine Gastroenterology
DX: K22.2 Esophageal obstruction (principal); E11.9 Type 2 diabetes mellitus without complications; E78.5 Hyperlipidemia, unspecified; I10 Essential (primary) hypertension; I25.2 Old myocardial infarction; Z95.5 Presence of coronary angioplasty implant and graft

== ENCOUNTER → 2016-07-15 | Outpatient (CLI) | payer OTHER, MEDICARE ==
[~2016-07-15] MED LIST changes: -LIDOCAINE HCL 2% 2 ML VIAL (20MG/ML) ONE; -MIDAZOLAM HCL 1 MG/ML 2ML VIAL ONE; -ONDANSETRON INJ 2 MG/ML 2 ML VIAL ONE; -PROPOFOL IV EMULSION 10 MG/ML 20 ML VIAL IV ONE
== END | disposition home or self-care (01) ==
LOC: C.LABSPEC 12:07
PROVIDERS: ATTEND Internal Medicine
DX: N39.0 Urinary tract infection, site not specified (principal)